=== PATIENT | female | born 1970 | race Caucasian/White ===

== ENCOUNTER 2016-05-26 07:26 | Outpatient (CLI) ==
[2016-05-26 08:16] LABS: ALBUMIN 3.4 g/dL (3.4-5.0); ALBUMIN/GLOBULIN RATIO 1.06; ANION GAP 11.2; BILIRUBIN,TOTAL 0.32 mg/dL (0.00-1.20); BUN/CREATININE RATIO 16.66; CHOL/HDL RATIO 4.5 (4.5-5.5); CREATININE 0.9 mg/dL (0.60-1.30); POTASSIUM 4.2 mmol/L (3.5-5.10); TOTAL PROTEIN 6.6 g/dL (6.4-8.2)
== END 2016-05-26 07:27 | disposition home or self-care (01) ==
LOC: LAB 07:26
PROVIDERS: ATTEND Nurse Practitioner Family
DX: E78.5 Hyperlipidemia, unspecified (principal); E78.1 Pure hyperglyceridemia
CPT/HCPCS: 36415; 80053; 80061

== ENCOUNTER 2017-05-06 10:01 | Outpatient (CLI) | END 2017-05-06 10:02 | disposition home or self-care (01) | LOC: LAB 10:01 | PROVIDERS: ATTEND Emergency Medicine | DX: E78.5 Hyperlipidemia, unspecified (principal); E78.1 Pure hyperglyceridemia; E66.3 Overweight; R91.1 Solitary pulmonary nodule | CPT/HCPCS: 36415; 80053; 80061; 81025; 84443; 85025 ==

== ENCOUNTER 2017-05-07 07:51 | Outpatient (CLI) ==
--- NOTE | 2017-05-07 08:52 | CT ---
EXAM: CT chest without contrast HISTORY: Solitary pulmonary nodule COMPARISON: None TECHNIQUE: CT chest performed without intravenous contrast. FINDINGS: Thyroid and thoracic inlet appear normal. Heart normal in size. No pericardial effusion. Aorta normal in caliber. Evaluation for lymphadenopathy limited without contrast. No lymphadenop athy identified.Esophagus unremarkable. Visualized portion upper abdomen demonstrates no acute abnor mality. No acute abnormalities of the bones. Central airway patent. No airspace consolidation. Mini mal dependent density lung bases. No pleural effusion. No pneumothorax. No pulmonary nodules ident ified. IMPRESSION: No acute cardiopulmonary process. No pulmonary nodules identified.
== END 2017-05-07 07:52 | disposition home or self-care (01) ==
LOC: RAD 07:51
PROVIDERS: ATTEND Emergency Medicine
DX: R91.1 Solitary pulmonary nodule (principal)

== ENCOUNTER 2017-06-11 09:13 | Outpatient (CLI) ==
--- NOTE | 2017-06-12 10:08 | MAMMO ---
EXAM: Bilateral digital screening mammogram (2-D and 3-D) History: Screening Comparison: Bilateral mammogram 01/04/2016 Findings: MLO and CC views of bilateral breasts demonstrate scattered fibroglandular breast parenchy ma. CAD was reviewed by the radiologist. Tomosynthesis was performed. There are no dominant masses , no suspicious microcalcifications and no architectural distortions Impression: Stable negative mammogram. Recommend followup routine screening mammography in 1 year. BIRADS 1
== END 2017-06-11 09:14 | disposition home or self-care (01) ==
LOC: RAD 09:13
PROVIDERS: ATTEND Emergency Medicine
DX: Z12.31 Encounter for screening mammogram for malignant neoplasm of breast (principal)
CPT/HCPCS: 77067

== ENCOUNTER 2018-08-31 09:27 | Outpatient (CLI) | END 2018-08-31 09:28 | disposition home or self-care (01) | LOC: CAR 09:27 | PROVIDERS: ATTEND Nurse Practitioner Family | DX: E66.9 Obesity, unspecified (principal) | CPT/HCPCS: 93005; 93010 ==

== ENCOUNTER 2018-09-08 08:13 | Outpatient (CLI) ==
--- NOTE | 2018-09-08 10:07 | MAMMO ---
EXAM: Bilateral digital screening mammogram (2-D and 3-D) History: Screening Comparison: Bilateral mammogram 06/11/2017 Findings: MLO and CC views of bilateral breasts demonstrate scattered fibroglandular breast parenchy ma. CAD was reviewed by the radiologist. Tomosynthesis was performed. 1 cm mass within the central right breast posterior depth and only well seen on the CC view. No suspicious microcalcifications. Impression: Indeterminate right breast mass and only well seen on the CC view. Recommend further ev aluation with spot compression views and a ML view with tomosynthesis BI-RADS 0, incomplete. Further evaluation needed
== END 2018-09-08 08:14 | disposition home or self-care (01) ==
LOC: RAD 08:13
PROVIDERS: ATTEND Nurse Practitioner Family
DX: Z12.31 Encounter for screening mammogram for malignant neoplasm of breast (principal); R94.31 Abnormal electrocardiogram [ECG] [EKG]
CPT/HCPCS: 36415; 84132

== ENCOUNTER 2018-09-08 08:32 | Outpatient (CLI) | END 2018-09-08 08:33 | disposition home or self-care (01) | LOC: RHC-LAB 08:32 | PROVIDERS: ATTEND Nurse Practitioner Family | DX: R94.31 Abnormal electrocardiogram [ECG] [EKG] (principal) | CPT/HCPCS: 36415; 84132 ==

== ENCOUNTER 2018-09-15 08:00 | Outpatient (CLI) ==
--- NOTE | 2018-09-15 11:52 | MAMMO ---
EXAM: Digital diagnostic mammogram right breast, right breast ultrasound HISTORY: Unspecified lump in right breast, callback COMPARISON: 09/08/2018 FINDINGS: Right breast mammogram: Spot compression CC view right breast was performed. MLO view right breast was performed. Tomosynth esis was performed. Computer aided detection utilized. There is a persistent mass in the right infe rior breast approximate 6 o'clock position and 6 cm from the nipple. Right breast ultrasound. Right breast ultrasound was performed. At the 6 o'clock position and 6 cm from the nipple, there is a hypoechoic mass measuring 0.5 x 0.4 x 0.6 cm. IMPRESSION: Hypoechoic mass right breast. Recommend tissue sampling. BIRADS category 4, suspicious
== END 2018-09-15 08:01 | disposition home or self-care (01) ==
LOC: RAD 08:00
PROVIDERS: ATTEND Nurse Practitioner Family
DX: N63.10 Unspecified lump in the right breast, unspecified quadrant (principal)